=== PATIENT | female | born 1990 | race Hispanic/Latino ===

== ENCOUNTER 2019-10-03 17:33 | Observation (INO) | payer MEDICAID | END 2019-10-03 18:46 | disposition home or self-care (01) | LOC: EDH 17:33 → LDH 18:10 | PROVIDERS: ADMIT Obstetrics & Gynecology; ATTEND Obstetrics & Gynecology | DX: O36.8130 Decreased fetal movements, third trimester, not applicable or unspecified (principal); Z3A.19 19 weeks gestation of pregnancy | CPT/HCPCS: 99284; G0378 ==